=== PATIENT | male | born 1955 | race Caucasian/White ===

== ENCOUNTER 2018-03-06 12:59 | Inpatient (IN) | payer OTHER ==
[2018-03-06] MEDS: ONDANSETRON 4 MG INJ IV (13:28)
[2018-03-06] MEDS: morphine 10 MG INJ IV (13:28)
[2018-03-06] MEDS: SOD CHLORIDE 0.9% 1,000 ML IV (15:16)
[2018-03-06 15:22] LABS: ADD MAN DIFF? NO
[2018-03-06 15:26] LABS: WHITE BLOOD COUNT 10.8 10^3/ul (4.8-10.8)
[2018-03-06 15:26] LABS: BASOPHIL # 0.1 10^3/ul (0.0-0.1); BASOPHILS % 0.5 % (0.0-2.0); EOSINOPHILS # 0.2 10^3/ul (0.0-0.5); EOSINOPHILS % 1.8 % (0.0-7.0); HEMATOCRIT 40.2 % (42.0-52.0); HEMOGLOBIN 13.4 g/dl (14.0-18.0); LYMPHOCYTES # 2.2 10^3/ul (0.8-2.9); LYMPHOCYTES % 19.9 % (15.0-51.0); MEAN CORPUSCULAR HEMOGLOBIN 30.8 pg (29.0-33.0); MEAN CORPUSCULAR HGB CONC 33.3 g/dl (32.0-37.0); MEAN CORPUSCULAR VOLUME 92.4 fl (82.0-101.0); MEAN PLATELET VOLUME 10.1 fl (7.4-10.4); MONOCYTE # 0.9 10^3/ul (0.3-0.9); MONOCYTES % 7.8 % (0.0-11.0); NEUTROPHIL # 7.6 10^3/ul (1.6-7.5); NEUTROPHILS % 69.6 % (39.0-77.0); PLATELET COUNT 298 10^3/UL (140-415); RED BLOOD COUNT 4.35 10^6/ul (4.70-6.10)
[2018-03-06 15:30] LABS: INR 0.99; PROTIME 13.2 Sec (11.9-14.9)
[2018-03-06] MEDS ORDERED: ACETAMINOPHEN 325 MG TAB PO (15:30)
[2018-03-06] MEDS ORDERED: hydrALAzine 20 MG INJ IV (15:30)
[2018-03-06] MEDS ORDERED: DOCUSATE SODIUM 100 MG CAP PO (15:30)
[2018-03-06] MEDS ORDERED: NA PHOSPHATE/BIPHOS 133 ML ENEMA PR (15:30)
[2018-03-06] MEDS ORDERED: MAGNESIUM HYDROXIDE 30ML CUP PO (15:30)
[2018-03-06] MEDS ORDERED: ALBUTEROL/IPRATROPIUM (NEB) 3 ML AMP HHN (15:30)
[2018-03-06] MEDS ORDERED: NITROGLYCERIN (SL) 0.4 MG TAB SL (15:30)
[2018-03-06] MEDS ORDERED: ONDANSETRON 4 MG INJ IV (15:30)
[2018-03-06] MEDS ORDERED: NACL 0.9% 3 ML SYG IV (15:30)
[2018-03-06] MEDS ORDERED: LORAZEPAM 2 MG INJ IV (15:30)
[2018-03-06 15:35] LABS: ANION GAP 14 (8-16); BLOOD UREA NITROGEN 26 mg/dl (7-20); CALCIUM 8.7 mg/dl (8.4-10.2); CARBON DIOXIDE 25 mmol/L (21-31); CHLORIDE 106 mmol/L (97-110); CREATININE 1.12 mg/dl (0.61-1.24); GLUCOSE 141 mg/dl (70-220); POTASSIUM 4.1 mmol/L (3.5-5.1); SODIUM 141 mmol/L (135-144)
[2018-03-06 16:16] LABS: FREE T4 (FREE THYROXINE) 0.98 ng/dl (0.78-2.44)
[2018-03-06] MEDS: HYDROCODONE/APAP (5/325) TAB PO (16:19)
[2018-03-06] MEDS: PANTOPRAZOLE 40 MG INJ IV (17:00)
[2018-03-06] MEDS: SOD CHLORIDE 0.45% 1,000 ML IV (17:35)
[2018-03-06 19:38] LABS: INR 0.96; PROTIME 12.9 Sec (11.9-14.9)
[2018-03-06 19:39] LABS: PARTIAL THROMBOPLASTIN TIME 24.1 Sec (25.0-35.0)
[2018-03-06 19:47] LABS: TROPONIN-I < 0.012 ng/ml (0.000-0.120)
[2018-03-06] MEDS: ATORVASTATIN 20 MG TAB PO (21:35)
[2018-03-06] MEDS: HEPARIN 5,000 UNIT/0.5 ML VIAL SC (21:36)
[2018-03-07 05:10] LABS: ADD MAN DIFF? NO
[2018-03-07] MEDS: SOD CHLORIDE 0.45% 1,000 ML IV ×2 (05:16→18:22)
[2018-03-07] MEDS: PANTOPRAZOLE 40 MG INJ IV (05:19)
[2018-03-07 05:23] LABS: WHITE BLOOD COUNT 8.5 10^3/ul (4.8-10.8)
[2018-03-07 05:23] LABS: BASOPHILS % 0.5 % (0.0-2.0); EOSINOPHILS # 0.3 10^3/ul (0.0-0.5); HEMATOCRIT 37.7 % (42.0-52.0); HEMOGLOBIN 12.3 g/dl (14.0-18.0); LYMPHOCYTES # 2.2 10^3/ul (0.8-2.9); LYMPHOCYTES % 25.8 % (15.0-51.0); MEAN CORPUSCULAR HEMOGLOBIN 30.7 pg (29.0-33.0); MEAN CORPUSCULAR HGB CONC 32.6 g/dl (32.0-37.0); MEAN PLATELET VOLUME 9.8 fl (7.4-10.4); MONOCYTE # 0.9 10^3/ul (0.3-0.9); MONOCYTES % 10.3 % (0.0-11.0); NEUTROPHIL # 5.1 10^3/ul (1.6-7.5); NEUTROPHILS % 60.2 % (39.0-77.0); PLATELET COUNT 252 10^3/UL (140-415); RED BLOOD COUNT 4.01 10^6/ul (4.70-6.10)
[2018-03-07 05:47] LABS: CHOLESTEROL 96 mg/dl (100-200)
[2018-03-07 05:47] LABS: CHOL/HDL RATIO 2.5 RATIO; HDL CHOLESTEROL 37 mg/dl (30-78); LDL CHOLESTEROL,CALCULATED 41 mg/dl; TRIGLYCERIDES 90 mg/dl (0-149)
[2018-03-07 05:48] LABS: ANION GAP 12 (8-16); BLOOD UREA NITROGEN 17 mg/dl (7-20); CALCIUM 8.2 mg/dl (8.4-10.2); CARBON DIOXIDE 26 mmol/L (21-31); CHLORIDE 108 mmol/L (97-110); CREATININE 0.88 mg/dl (0.61-1.24); GLUCOSE 107 mg/dl (70-220); MAGNESIUM 2.1 mg/dl (1.7-2.5); PHOSPHORUS 3.9 mg/dl (2.5-4.9); POTASSIUM 4.2 mmol/L (3.5-5.1); SODIUM 142 mmol/L (135-144)
[2018-03-07] MEDS: HEPARIN 5,000 UNIT/0.5 ML VIAL SC ×2 (08:51→20:13)
[2018-03-07 14:44] LABS: HEMOGLOBIN A1C 6.1 % (0-5.9)
[2018-03-07] MEDS: morphine 2 MG INJ IV ×2 (16:43→22:12)
[2018-03-07] MEDS: ATORVASTATIN 20 MG TAB PO (20:10)
[2018-03-08] MEDS: PANTOPRAZOLE 40 MG INJ IV (05:20)
[2018-03-08 06:50] LABS: ADD MAN DIFF? NO
[2018-03-08 06:53] LABS: WHITE BLOOD COUNT 8.7 10^3/ul (4.8-10.8)
[2018-03-08 06:53] LABS: BASOPHILS % 0.5 % (0.0-2.0); EOSINOPHILS # 0.3 10^3/ul (0.0-0.5); EOSINOPHILS % 3.8 % (0.0-7.0); HEMATOCRIT 38.5 % (42.0-52.0); HEMOGLOBIN 12.6 g/dl (14.0-18.0); LYMPHOCYTES # 2.3 10^3/ul (0.8-2.9); LYMPHOCYTES % 25.9 % (15.0-51.0); MEAN CORPUSCULAR HEMOGLOBIN 30.7 pg (29.0-33.0); MEAN CORPUSCULAR HGB CONC 32.7 g/dl (32.0-37.0); MEAN CORPUSCULAR VOLUME 93.9 fl (82.0-101.0); MEAN PLATELET VOLUME 10.3 fl (7.4-10.4); MONOCYTE # 0.9 10^3/ul (0.3-0.9); MONOCYTES % 9.9 % (0.0-11.0); NEUTROPHIL # 5.2 10^3/ul (1.6-7.5); NEUTROPHILS % 59.6 % (39.0-77.0); PLATELET COUNT 248 10^3/UL (140-415); RED CELL DISTRIBUTION WIDTH 13.2 % (11.5-14.5)
[2018-03-08] MEDS: SOD CHLORIDE 0.45% 1,000 ML IV ×2 (06:56→09:07)
[2018-03-08 07:20] LABS: ANION GAP 13 (8-16); BLOOD UREA NITROGEN 14 mg/dl (7-20); CALCIUM 8.6 mg/dl (8.4-10.2); CARBON DIOXIDE 29 mmol/L (21-31); CHLORIDE 102 mmol/L (97-110); CREATININE 0.91 mg/dl (0.61-1.24); GLUCOSE 102 mg/dl (70-220); POTASSIUM 4.3 mmol/L (3.5-5.1); SODIUM 140 mmol/L (135-144)
[2018-03-08] MEDS: HEPARIN 5,000 UNIT/0.5 ML VIAL SC ×2 (08:17→20:26)
[2018-03-08] MEDS ORDERED: ROCURONIUM 50 MG INJ (09:19)
[2018-03-08] MEDS ORDERED: MIDAZOLAM 1 MG/ML 2 ML INJ (09:19)
[2018-03-08] MEDS ORDERED: HYDROmorphONE 2 MG/ML SYG (09:19)
[2018-03-08] MEDS ORDERED: CEFAZOLIN 1 GM INJ (09:19)
[2018-03-08] MEDS ORDERED: ROPIVACAINE 0.5 % 30 ML VIAL (09:19)
[2018-03-08] MEDS ORDERED: PROPOFOL 20 ML (09:19)
[2018-03-08] MEDS ORDERED: ROPIVACAINE 0.2% 20 ML VIAL (09:19)
[2018-03-08] MEDS: POLYMYXIN/BACITRACIN 1L IRRIG (10:20)
[2018-03-08] MEDS ORDERED: MEPERIDINE 25 MG INJ IV (10:30)
[2018-03-08] MEDS ORDERED: FENTAnyl 50 MCG/ML VIAL IV ×3 (10:30)
[2018-03-08] MEDS ORDERED: HYDROmorphONE 1 MG/5 ML IV SYRINGE IV ×3 (10:30)
[2018-03-08] MEDS ORDERED: ONDANSETRON 4 MG INJ IV (10:30)
[2018-03-08] MEDS ORDERED: EPHEDrine SULFATE 50 MG/5 ML SYG IV (10:30)
[2018-03-08] MEDS ORDERED: LABETALOL HCL 20MG INJ IV (10:30)
[2018-03-08] MEDS ORDERED: hydrALAzine 20 MG INJ IV (10:30)
[2018-03-08] MEDS ORDERED: METOCLOPRAMIDE 10 MG INJ IV (10:30)
[2018-03-08] MEDS ORDERED: OXYCODONE/ACETAMINOPHEN (5/325) TAB PO ×2 (10:30)
[2018-03-08] MEDS ORDERED: DIPHENHYDRAMINE 50 MG INJ IV (10:30)
[2018-03-08] MEDS ORDERED: SUGAMMADEX SODIUM 200 MG/2 ML VIAL IV (11:39)
[2018-03-08] MEDS ORDERED: DEXAMETHASONE 4 MG/ML 1 ML INJ (11:39)
[2018-03-08] MEDS ORDERED: ONDANSETRON 4 MG INJ (11:39)
[2018-03-08] MEDS ORDERED: ACETAMINOPHEN 1000MG/100ML IV 100 ML (11:39)
[2018-03-08] MEDS ORDERED: KETOROLAC 30 MG INJ (11:39)
[2018-03-08] MEDS ORDERED: METOCLOPRAMIDE 10 MG INJ (11:39)
[2018-03-08] MEDS ORDERED: morphine 2 MG INJ IV (12:30)
[2018-03-08] MEDS ORDERED: NALOXONE (0.4 MG/ML) INJ IV (12:30)
[2018-03-08] MEDS ORDERED: CEFAZOLIN 1 GM/50 ML (PMX) 50 ML IVPB (12:30)
[2018-03-08] MEDS: SOD CHLORIDE 0.9% 1,000 ML IV ×2 (14:20→22:24)
[2018-03-08] MEDS ORDERED: LORAZEPAM 0.5 MG TAB PO (16:40)
[2018-03-08] MEDS: CEFAZOLIN 1 GM/50 ML (PMX) 50 ML IVPB (18:43)
[2018-03-08] MEDS: ATORVASTATIN 20 MG TAB PO (20:25)
[2018-03-09] MEDS: CEFAZOLIN 1 GM/50 ML (PMX) 50 ML IVPB ×2 (02:37→10:22)
[2018-03-09 05:52] LABS: ADD MAN DIFF? NO
[2018-03-09 05:54] LABS: WHITE BLOOD COUNT 14.1 10^3/ul (4.8-10.8)
[2018-03-09 05:54] LABS: BASOPHILS % 0.1 % (0.0-2.0); HEMATOCRIT 37.3 % (42.0-52.0); HEMOGLOBIN 12.2 g/dl (14.0-18.0); LYMPHOCYTES # 1.4 10^3/ul (0.8-2.9); LYMPHOCYTES % 9.9 % (15.0-51.0); MEAN CORPUSCULAR HEMOGLOBIN 30.7 pg (29.0-33.0); MEAN CORPUSCULAR HGB CONC 32.7 g/dl (32.0-37.0); MEAN PLATELET VOLUME 10.4 fl (7.4-10.4); MONOCYTE # 0.9 10^3/ul (0.3-0.9); MONOCYTES % 6.1 % (0.0-11.0); NEUTROPHIL # 11.8 10^3/ul (1.6-7.5); NEUTROPHILS % 83.5 % (39.0-77.0); PLATELET COUNT 255 10^3/UL (140-415); RED BLOOD COUNT 3.97 10^6/ul (4.70-6.10); RED CELL DISTRIBUTION WIDTH 12.8 % (11.5-14.5)
[2018-03-09] MEDS: PANTOPRAZOLE 40 MG INJ IV (06:06)
[2018-03-09] MEDS: SOD CHLORIDE 0.9% 1,000 ML IV ×2 (06:06→08:24)
[2018-03-09 06:28] LABS: ANION GAP 14 (8-16); BLOOD UREA NITROGEN 12 mg/dl (7-20); CALCIUM 8.5 mg/dl (8.4-10.2); CARBON DIOXIDE 27 mmol/L (21-31); CHLORIDE 105 mmol/L (97-110); CREATININE 0.82 mg/dl (0.61-1.24); GLUCOSE 135 mg/dl (70-220); POTASSIUM 3.9 mmol/L (3.5-5.1); SODIUM 142 mmol/L (135-144)
[2018-03-09] MEDS: ENOXAPARIN 40 MG/0.4 ML SYG SC ×2 (09:01→21:28)
[2018-03-09] MEDS: HYDROCODONE/APAP (5/325) TAB PO (14:57)
[2018-03-09] MEDS: ATORVASTATIN 20 MG TAB PO (21:29)
[2018-03-10 05:48] LABS: ADD MAN DIFF? NO
[2018-03-10 05:53] LABS: WHITE BLOOD COUNT 9.4 10^3/ul (4.8-10.8)
[2018-03-10 05:53] LABS: BASOPHILS % 0.4 % (0.0-2.0); EOSINOPHILS # 0.2 10^3/ul (0.0-0.5); EOSINOPHILS % 1.9 % (0.0-7.0); HEMATOCRIT 36.4 % (42.0-52.0); HEMOGLOBIN 11.9 g/dl (14.0-18.0); LYMPHOCYTES # 3.1 10^3/ul (0.8-2.9); LYMPHOCYTES % 32.3 % (15.0-51.0); MEAN CORPUSCULAR HEMOGLOBIN 31.2 pg (29.0-33.0); MEAN CORPUSCULAR HGB CONC 32.7 g/dl (32.0-37.0); MEAN CORPUSCULAR VOLUME 95.5 fl (82.0-101.0); MEAN PLATELET VOLUME 10.4 fl (7.4-10.4); MONOCYTES % 10.2 % (0.0-11.0); NEUTROPHIL # 5.2 10^3/ul (1.6-7.5); NEUTROPHILS % 54.9 % (39.0-77.0); PLATELET COUNT 250 10^3/UL (140-415); RED BLOOD COUNT 3.81 10^6/ul (4.70-6.10); RED CELL DISTRIBUTION WIDTH 13.3 % (11.5-14.5)
[2018-03-10 06:15] LABS: ANION GAP 13 (8-16); BLOOD UREA NITROGEN 17 mg/dl (7-20); CALCIUM 8.2 mg/dl (8.4-10.2); CARBON DIOXIDE 28 mmol/L (21-31); CHLORIDE 108 mmol/L (97-110); CREATININE 1.05 mg/dl (0.61-1.24); GLUCOSE 104 mg/dl (70-220); POTASSIUM 4.6 mmol/L (3.5-5.1); SODIUM 144 mmol/L (135-144)
[2018-03-10] MEDS: morphine LIQ (10 MG/5 ML) CUP PO (11:04)
[2018-03-10] MEDS: ENOXAPARIN 40 MG/0.4 ML SYG SC (11:05)
== END 2018-03-10 19:17 | disposition home health service (06) | DRG 494 ==
LOC: E/R 12:59 → PP2 16:58
PROVIDERS: Hospitalist
PROC: 0QSJ04Z Reposition Right Fibula with Internal Fixation Device, Open Approach (ICD-10-PCS; principal; 2018-03-08 10:20)
DX: S82.61XA Displaced fracture of lateral malleolus of right fibula, initial encounter for closed fracture (principal); W11.XXXA Fall on and from ladder, initial encounter; E78.00 Pure hypercholesterolemia, unspecified; R73.03 Prediabetes
CPT/HCPCS: 71045; 73600; 73610-RT; 80048; 80061; 83036; 83735; 84100; 84439; 84443; 84484; 85025; 85610; 85730; 93005; 96374; 96375; 97116; 97161; 97165; 97530; 97535; 99285-25